=== PATIENT | female | born 1940 | race Caucasian/White ===

== ENCOUNTER 2016-12-23 04:46 | Observation (INO) ==
[2016-12-23] MEDS ORDERED: *HR* Morphine 2 MG/ML SYRINGE IVP ONE ×2 (05:19→06:27)
[2016-12-23] MEDS ORDERED: Ondansetron 4 MG/2 ML VIAL IVP PRN ×3 (05:20→14:37)
[2016-12-23] MEDS ORDERED: 0.9 % Sodium Chloride 1,000 ML IVC ONE (05:28)
--- NOTE | 2016-12-23 05:28 | Emergency Department Note ---
Disposition Clinical Impression: Right ureteral stone, Hydronephrosis of right kidney Disposition: Admitted As Inpatient Condition: Good Referrals: NONE,PCP [Primary Care Provider] - Forms: Work/School Release, ED Satisfaction Letter Time of Disposition: 06:21 Abdominal Pain HPI - General Chief Complaint: ED Abdominal Pain Stated Complaint: right flank pain Time Seen by Provider: 12/23/16 05:03 Source: patient, family Mode of arrival: ambulatory Limitations: no limitations Nursing Notes Reviewed: Yes Vital Signs Reviewed: Yes - History of Present Illness HPI Narrative: 76-year-old female recently diagnosed hypertension presents with right flank pain. This is been ongoing for the past week worse today. She is on able to find a position of ease and reports nausea without any vomiting. Describes the pain as sharp very painful radiating to the anterior abdomen. Denies any prior history of this and the past. No history of kidney stones. Denies any fever, recent illness, chest pain, shortness of breath. She reports constipation that is not new. Denies any dysuria but did notice hematuria a week ago. History of cholecystectomy. Patients afebrile and hypertensive. She has a prescription for lisinopril but reports not taking the medication the past few days. She does not have a primary care physician. Bedside ultrasound was performed in shows some mild to moderate right hydronephrosis. She is hypertensive likely from noncompliance but also from pain. Will get urinalysis, basic labs in the CT of the abdomen and pelvis to evaluate possible kidney stone. Will also give IV fluids, Zofran and morphine for symptoms. Patient is in agreement with this plan. Pt Subjective Complaint: flank pain Onset (ago): week(s) Pain Scale: 10 - Related Data Home Medications Medication Instructions Recorded Confirmed Claritin 07/22/16 Sudafed PE 07/22/16 Previous Rx's Medication Instructions Recorded Fluticasone Propionate Nasal 120 spray NS DAILY #1 bottle 07/22/16 [Flonase] Lisinopril [Zestril] 20 mg PO DAILY #15 tablet 07/22/16 Allergies Allergy/AdvReac Type Severity Reaction Status Date / Time No Known Allergies Allergy Verified 02/08/16 13:51 All systems ED: reviewed and negative except as stated. Review of Systems: As Per HPI Constitutional: Denies: fever, chills Cardiovascular: Denies: chest pain Respiratory: Denies: cough, dyspnea Gastrointestinal: Reports: abdominal pain, nausea, constipation. Denies: vomiting, diarrhea, melena, hematochezia Genitourinary: Reports: hematuria. Denies: urgency, dysuria, frequency Musculoskeletal: Reports: back pain (Right flank). Denies: neck pain Integumentary: Denies: rash, abrasion Neurological: Denies: headache Abdominal Pain PMH - Past Medical History Medical history: Reports: hypertension Female Surgical History: Reports: cholecystectomy Psychiatric history: Reports: no psych history - Social History Smoking status: Never smoker Alcohol use: Reports: none Drug use: Reports: none Physical Exam - General Limitations: no limitations General appearance: alert, in no apparent distress, other (Unable to find comfortable position) - Head Head exam: atraumatic, normocephalic, normal inspection - Eye Eye exam: Present: normal appearance, PERRL, EOMI. Absent: scleral icterus - ENT ENT exam: normal exam, normal oropharynx, mucous membranes moist - Neck Neck exam: Present: normal inspection, full ROM, trachea midline. Absent: tenderness - Chest Chest inspection: Present: normal inspection, symmetric chest wall rise. Absent : tenderness - Respiratory Respiratory exam: Present: normal lung sounds bilaterally. Absent: respiratory distress, wheezes - Cardiovascular Cardiovascular exam: Present: regular rate, normal rhythm, normal heart sounds - Abdominal Exam Abdominal exam: Present: soft, Non-Tender, hypoactive bowel sounds. Absent: tenderness, distention, guarding, rebound, rigidity, obturator sign, Rovsing's sign, tenderness at McBurney's Point - Extremities Exam Extremities exam: Present: normal inspection, full ROM, normal capillary refill. Absent: tenderness, pedal edema, calf tenderness - Back Exam Back exam: Present: normal inspection, full ROM, CVA tenderness (R). Absent: tenderness, CVA tenderness (L), vertebral tenderness, rashes - Neurological Exam Neurological exam: Present: alert, oriented X3 - Skin Skin exam: Present: warm, dry, intact, normal color Course - Reevaluation(s) Reevaluation #1: Review of her CT abdomen pelvis reveals a large ureteral stone up to 10 mm. Will await the final radiology report. Patient will likely need admission and neurology auscultation. Pain has subsided with morphine. Awaiting urinalysis. Creatinine function is surprisingly normal given the amount of hydronephrosis on her right kidney. Time: 06:05 Reevaluation #2: Pain mildly improved with morphine. Requests for additional medication. Additional 4 milligrams of morphine ordered. Urinalysis is is contaminated and showing hematuria, no obvious infection. Patient is awaiting admission to Urology service. Impression is ureteral stone with right hydronephrosis. Time: 06:29 - Consultations Consultation #1: Spoke to urologist Dr. Rhodes, due to the size it will likely need stenting. States that if the pain is intractable she may need admission. Her creatinine function is normal and awaiting a urinalysis at this time to evaluate for infection. I strongly suggested that she will likely need admission for symptom control and further intervention vs. outpatient follow up and treatment later today in the office as suggested. Dr. Rhodes is agreeable to admitting the patient to his service. Time: 06:19 Vital Signs Temperature 97.7 F 12/23/16 04:47 Pulse Rate 77 12/23/16 04:47 Respiratory Rate 16 12/23/16 04:47 Blood Pressure 208/102 12/23/16 04:47 O2 Sat by Pulse Oximetry 96 12/23/16 04:47 Temperature 97.7 F 12/23/16 04:47 Pulse Rate 77 12/23/16 04:47 Respiratory Rate 16 12/23/16 04:47 Blood Pressure 208/102 12/23/16 04:47 O2 Sat by Pulse Oximetry 94 12/23/16 05:44 Oxygen Delivery Oxygen Delivery Room Air Abdominal Pain - Medical Records Medical records reviewed: Yes I reviewed the patient's medical records. - Lab Data Lab results reviewed: Yes I reviewed the patient's lab results. Result diagrams: 12/23/16 05:17 12/23/16 05:17 Lab Results 12/23/16 12/23/16 12/23/16 Range/Units 05:17 05:17 06:20 WBC 8.0 (4.3-11.1) K/mcL RBC 4.89 (3.82-4.97) M/mcL Hgb 15.3 (11.5-15.4) g/dL Hct 45.6 H (35.3-44.9) % MCV 93.3 (83.0-100.0) fL MCH 31.3 (28.0-33.3) pg MCHC 33.6 (31.6-35.5) g/dL RDW 13.4 (11.5-14.5) % Plt Count 318 (140-400) K/mcL MPV 9.8 (9.4-12.4) fL Immature Gran % 1.0 (0-4) % Seg Neutrophils % 62.3 % Lymphocytes % 25.2 % Monocytes % 8.8 % Eosinophils % 2.2 % Basophils % 0.5 % Neutrophils # 5.0 (1.6-8.9) K/mcL Lymphocytes # 2.0 (0.6-4.6) K/mcL Monocytes # 0.7 (0.0-1.3) K/mcL Eosinophils # 0.2 (0.0-0.6) K/mcL Basophils # 0.0 (0.0-0.2) K/mcL Sodium 140 (136-145) mEq/L Potassium 3.9 (3.5-4.5) mEq/L Chloride 105 (98-109) mEq/L Carbon Dioxide 26 (19-29) mEq/L BUN 12 (7-20) mg/dL Creatinine 0.88 (0.57-1.11) mg/dL Est GFR ( Amer) > 60 (> 60) Est GFR (Non-Af Amer) > 60 (> 60) BUN/Creatinine Ratio 14 (6-26) Glucose 113 H (70-99) mg/dL Calculated Osmolality 291 (280-300) Calcium 9.6 (8.6-10.8) mg/dL Urine Color Yellow (Yellow) Urine Clarity Clear (Clear) Urine pH 6.5 (5.0-8.0) pH Units Ur Specific [place] 1.015 (1.010-1.025) Urine Protein 30 H (Neg-Trace) mg/dL Urine Glucose (UA) Normal (Normal) mg/dL Urine Ketones Negative (Negative) mg/dL Urine Blood Moderate H (Negative) Urine Nitrite Negative (Negative) Urine Bilirubin Negative (Negative) Urine Urobilinogen Normal (Normal) mg/dL Ur Leukocyte Esterase Trace H (Negative) Urine Microscopic RBC 15-30 H (0-3) per hpf Urine Microscopic WBC 5-15 H (0-3) per hpf Ur Squamous Epith Cells Many H (None-Few) per lpf Urine Bacteria None Seen (None-Few) per hpf Hyaline Casts None Seen (None-Few) per lpf Ur Culture Indicated? YES A (NO) - Radiology Data Radiology results reviewed: Yes I reviewed the patient's radiology results. Abdomen/Pelvis CT 12/23/16 05:19 IMPRESSION: Moderate to severe right-sided hydroureteronephrosis relating to a 15 mm sized stone in the proximal right ureter. Bilateral intrarenal nonobstructing calculi are present. Colonic diverticulosis is noted. D/ / Robert Ribeiro MD / Robert Ribeiro MD Interpreting Provider: Robert Ribeiro MD - EKG Data EKG attestation: Yes I reviewed and interpreted this EKG. EKG results narrative: EKG will performed 0459 sinus rhythm 80 bpm left atrial enlargement seen on lead V1, Q waves in inferior lead, no ST elevations or depression, intervals are within normal limits. No old EKG is available for comparison. This is a abnormal EKG. Patient denies any chest pain at this time. No STEMI pattern.
--- NOTE | 2016-12-23 05:31 | Emergency Department Note ---
START Narrative - START START: I examined this patient and my medical decision-making was reviewed with the Resident Physician. I agree with the documented findings, disposition and treatment plan as described except to the extent set forth below. Patient presents with right flank pain. We will need to evaluate for possible kidney stone. Bedside quick ultrasound showed possible hydronephrosis on the right kidney. We will do a CT scan as well as lab work and a urinalysis.
[2016-12-23 05:32] LABS: Basophils % 0.5 %; Eosinophils # 0.2 K/mcL (0.0-0.6); Eosinophils % 2.2 %; Hematocrit 45.6 % (35.3-44.9); Hemoglobin 15.3 g/dL (11.5-15.4); Lymphocytes % 25.2 %; Mean Corpuscular HGB Conc 33.6 g/dL (31.6-35.5); Mean Corpuscular Hemoglobin 31.3 pg (28.0-33.3); Mean Corpuscular Volume 93.3 fL (83.0-100.0); Mean Platelet Volume 9.8 fL (9.4-12.4); Monocytes # 0.7 K/mcL (0.0-1.3); Monocytes % 8.8 %; Platelet Count 318 K/mcL (140-400); Red Blood Count 4.89 M/mcL (3.82-4.97); Red Cell Distribution Width 13.4 % (11.5-14.5); Segmented Neutrophils % 62.3 %
[2016-12-23 05:47] LABS: BUN/Creatinine Ratio 14 (6-26); Blood Urea Nitrogen 12 mg/dL (7-20); Calcium 9.6 mg/dL (8.6-10.8); Carbon Dioxide 26 mEq/L (19-29); Chloride 105 mEq/L (98-109); Glucose 113 mg/dL (70-99); Osmolality,Calculated 291 (280-300); Potassium 3.9 mEq/L (3.5-4.5); Sodium 140 mEq/L (136-145); eGFR For African Americans > 60 (> 60); eGFR For Non-African Americans > 60 (> 60)
[2016-12-23 06:30] LABS: Bilirubin,Urine Negative (Negative); Blood,Urine Moderate (Negative); Clarity,Urine Clear (Clear); Color,Urine Yellow (Yellow); Glucose,Urine (UA) Normal (Normal); Ketones,Urine Negative (Negative); Leukocyte Esterase,Urine Trace (Negative); Nitrite,Urine Negative (Negative); PH,Urine 6.5 pH Units (5.0-8.0); Protein,Urine 30 mg/dL (Neg-Trace); Specific Gravity,Urine 1.015 (1.010-1.025); Urobilinogen,Urine Normal (Normal)
[2016-12-23 06:32] LABS: Bacteria,Urine None Seen per hpf (None-Few); Hyaline Casts,Urine None Seen per lpf (None-Few); RBC,Urine 15-30 per hpf (0-3); Squamous Epithelial Cell,Urine Many per lpf (None-Few)
[2016-12-23] MEDS ORDERED: Naloxone 0.4 MG/ML INJ IVP PRN ×2 (07:49→14:37)
[2016-12-23] MEDS ORDERED: *HR* HYDROmorphone (PF) 1 MG/ML SYRINGE IVP PRN ×2 (07:49→14:37)
--- NOTE | 2016-12-23 07:49 | Urology History & Physical ---
Date of Encounter: 12/23/16 Time of Encounter: 07:46 Assessment and Plan (1) Right ureteral stone Current Visit: Yes Status: Acute 76-year-old woman with a history of a right proximal ureteral stone. I reviewed the films. Her pain is not adequately controlled. Given the size of the stone, I think it be best to place a stent. I would then proceed with ureteroscopy and laser lithotripsy at a later date once the ureter has been passively dilated with the stent. I informed her of the risks of the procedure. I will plan on performing a cystoscopy and right ureteral stent placement. The risks include but are not limited to bleeding, infection, injury to structures, need for further procedures, stent irritation, need for nephrostomy tube, and the risk of anesthesia. She is willing to proceed. History of Present Illness Chief complaint: Right flank pain HPI: Ms. Multani is a 76 year old female who presents with a 2 day history of right flank pain. The pain became more severe last night. It is located in the right flank and radiates to the groin. The pain was quite severe. It was sharp. She denies any history of a similar pain. She came to the emergency department and a CT scan was performed which showed a 15 mm right proximal ureteral stone. She has been admitted for pain control. Past Med Surg Social Fam HX - Past Medical History Medical history: hypertension Psychiatric history: no psych history - Past Surgical History Surgical History: non-contributory, cholecystectomy - Social History Smoking Status: Never smoker Smokeless Tobacco Status: No Alcohol use: none Drug use: none - Family History Mother Hx Family Respiratory Disorders: Yes (COPD) Hx Family Neurologic Disorders: Yes (TIA) Father Hx Family Cardiac Disorders: Yes (SC,) Medications and Allergies Claritin 07/22/16 [History] Fluticasone Propionate Nasal [Flonase] 120 spray NS DAILY #1 bottle 07/22/16 [Rx ] Lisinopril [Zestril] 20 mg PO DAILY #15 tablet 07/22/16 [Rx] Sudafed PE 07/22/16 [History] Allergies No Known Allergies Allergy (Verified 02/08/16 13:51) Review of Systems - Constitutional no chills, no fever(s) - EENT Nose, mouth and throat: no dizziness - Cardiovascular no chest pain - Respiratory no dyspnea - Gastrointestinal no nausea, no vomiting - Genitourinary Genitourinary: flank pain, no hematuria - Musculoskeletal no back pain - Integumentary no erythema, no rash - Neurological no weakness - Psychiatric no suicidal ideation - Hematologic/Lymphatic no easy bleeding - Allergic/Immunologic no wheezing Exam Initial Vital Signs Temp Pulse Resp BP Pulse Ox 97.7 F 77 16 208/102 96 12/23/16 04:47 12/23/16 04:47 12/23/16 04:47 12/23/16 04:47 12/23/16 04:47 - General physical appearance Present: well developed, well nourished, moderate pain - Eyes Absent: icteric - ENT Present: normal nares - Neck Present: trachea midline - Respiratory Present: normal respiratory effort - Cardiovascular Cardiovascular exam IM: RRR - Abdomen Abdomen: Present: soft Urology Results - Labs 12/23/16 05:17 12/23/16 05:17 Abnormal lab results Hct 45.6 % (35.3-44.9) H 12/23/16 05:17 Glucose 113 mg/dL (70-99) H 12/23/16 05:17 Urine Protein 30 mg/dL (Neg-Trace) H 12/23/16 06:20 Urine Blood Moderate (Negative) H 12/23/16 06:20 Ur Leukocyte Esterase Trace (Negative) H 12/23/16 06:20 Urine Microscopic RBC 15-30 per hpf (0-3) H 12/23/16 06:20 Urine Microscopic WBC 5-15 per hpf (0-3) H 12/23/16 06:20 Ur Squamous Epith Cells Many per lpf (None-Few) H 12/23/16 06:20 Ur Culture Indicated? YES (NO) A 12/23/16 06:20 All other labs normal. - Imaging CT scan - abdomen: report reviewed, image reviewed CT scan - pelvis: report reviewed, image reviewed
[2016-12-23] MEDS ORDERED: 0.9 % Sodium Chloride 1,000 ML IVC SCH ×2 (08:00→14:37)
[2016-12-23] MEDS ORDERED: ceFAZolin 2,000 MG in D5% in Water (Mini-Bag+) 100 ML IVPB ONE (08:39)
[2016-12-23] MEDS ORDERED: Lisinopril 20 MG TABLET PO SCH (09:00)
[2016-12-23] MEDS ORDERED: Fluticasone Propionate Nasal 50 MCG/SPRAY BOTTLE NS SCH (09:00)
--- NOTE | 2016-12-23 09:02 | Anesthesia Evaluation PreOp ---
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 Any Significant HX Other Medical History: Denies Any Significant HX Anesthesia History: No Prior Anesthetic Complications, Past Anesthesia (GB) : No Alcohol Use: none Drug use: none Medications and Allergies Lisinopril [Zestril] 20 mg PO DAILY #15 tablet 07/22/16 [Rx] Loratadine [Allergy Relief] 10 mg PO DAILY 07/22/16 [History] Fluticasone Propionate Nasal [Flonase] 2 spray NS DAILY 12/23/16 [History] Allergies No Known Allergies Allergy (Verified 02/08/16 13:51) - Meds/Allergy Pre-op Review Medications Reviewed: Yes Allergies Reviewed: Yes Beta Blockers on Current Med List: No Anesthesia Results - Labs 12/23/16 05:17 12/23/16 05:17 Anesthesia Exam O2 Sat Height 1.6 m Weight 68.039 kg O2 Sat by Pulse Oximetry 95 O2 Sat by Pulse Oximetry 94 O2 Sat by Pulse Oximetry 96 Vital Signs Temp Pulse Resp BP Pulse Ox 97.7 F 77 16 208/102 96 12/23/16 04:47 12/23/16 04:47 12/23/16 04:47 12/23/16 04:47 12/23/16 04:47 Vital Signs/O2 Sat, Most Current Temp Pulse Resp BP Pulse Ox 98.2 F 74 16 177/82 95 12/23/16 07:25 12/23/16 07:25 12/23/16 07:25 12/23/16 07:25 12/23/16 07:25 Height: 5'3'' Weight: 150# NPO (# of Hours): > 8 hrs Pain Scale: 0 Pain Scale Used: Numeric (1 - 10) - HEENT Pupil (Motor): Pupils equal, EOMI Mallampati: II Teeth: Normal Oral Opening: Greater than 3 - STORE ADMINISTRATIVE ASSISTANT LOC: Oriented STORE ADMINISTRATIVE ASSISTANT Motor: Normal RUE, Normal LUE, Normal RLE, Normal LLE, Normal Face STORE ADMINISTRATIVE ASSISTANT Sensory: Normal: RUE, LUE, RLE, LLE, Face - Cardiac Rhythm: Regular Murmur: None JVD: No Carotid Bruit: No - Pulmonary Breath Sounds: bilateral Clear Respiratory Effort: Symmetrical Anesthesia Assess/Plan ASA Score: 2 Modified Pepperell Scale for Level of Consciousness: Cooperative, oriented, and tranquil Anesthetic Plan: General Autologous Blood: Yes Monitoring Plan: Standard Monitors Recovery Plan: PACU
[2016-12-23] MEDS ORDERED: *HR* Propofol 200 MG/20 ML VIAL IVP ONE (09:15)
[2016-12-23] MEDS ORDERED: Ondansetron 4 MG/2 ML VIAL ONE (09:15)
[2016-12-23] MEDS ORDERED: *HR* FentaNYL (PF) 100 MCG/2 ML VIAL ONE (09:15)
[2016-12-23] MEDS ORDERED: Dexamethasone 4 MG/ML VIAL ONE (09:15)
[2016-12-23] MEDS ORDERED: Lidocaine -MPF 2% 2 ML VIAL ONE (09:16)
--- NOTE | 2016-12-23 09:59 | Operative Note ---
Date of procedure: 12/23/16 Pre-op diagnosis: Right ureteral stone Post-op diagnosis: same Procedure: Cystoscopy, right ureteral stent placement. Implants: 6 [place] x 26cm JJ stent. Complications: none Anesthesia: JAVIER Surgeon: Lucho Rhodes Estimated blood loss (cc): 0 Specimen: none Condition: stable Disposition: PACU Procedure in Detail: Indications: Jennifer is a 76-year-old woman who has a history of nephrolithiasis. She had a CT which showed a right proximal ureteral stone. She elected to undergo a cystoscopy and right ureteral stent placement. She was aware of the risks of the procedure including but not limited to bleeding, infection, injury to other structures, need for further procedures, stent irritation, need for nephrostomy tube, need for open repair, risks otherwise unforeseen, and the risk of anesthesia. She is willing to proceed. Procedure in Detail: After informed consent was obtained the patient was brought back to the operating room and placed in supine position. A time out was performed. General anesthesia was administered and a LMA was placed. She was then placed in the lithotomy position. She was prepped and draped in the usual sterile fashion. Cystoscopy was performed. The anterior urethra was normal. There was no evidence of bladder tumors. The ureteral orifices were in the normal orthotopic position. There was no duplication of the ureteral orifices. The Zip wire was placed in the right ureteral orifice. It was passed into the kidney. A 6 [place] by 24cm JJ stent was then placed. The dangle strings were removed. The patient was then awakened from general anesthesia and brought to recovery room in good condition. All sponge, needle, and instrument counts were correct.
--- NOTE | 2016-12-23 10:05 | Discharge Summary ---
Date of Encounter: 12/23/16 Time of Encounter: 10:03 - Discharge Diagnosis (1) Right ureteral stone Priority: Primary Status: Acute - Discharge Medications Prescriptions: HYDROcodone/Acet 5/325 mg [[place] 5-325 mg] 1 tab PO Q4H PRN #25 tab PRN Reason: Pain Home Medications: Lisinopril [Zestril] 20 mg PO DAILY #15 tablet 07/22/16 [Rx] Loratadine [Allergy Relief] 10 mg PO DAILY 07/22/16 [History] Fluticasone Propionate Nasal [Flonase] 2 spray NS DAILY 12/23/16 [History] HYDROcodone/Acet 5/325 mg [[place] 5-325 mg] 1 tab PO Q4H PRN #25 tab 12/23/16 [Rx ] Allergies/Adverse Reactions: Allergies No Known Allergies Allergy (Verified 02/08/16 13:51) Date of admission: 12/23/16 06:37 Primary care physician: PCP NONE Discharging clinician: Lucho Rhodes Anticipated date of discharge: 12/23/16 - Patient Status Disposition: Home, Self-Care Condition: Good Functional capacity at discharge: independent ambulation Overall status at discharge: patient is progressing back to baseline - Discharge Instructions Additional Instructions: 1. Dr. Rhodes will arrange for a surgery date to treat her stone. 2. She should expect to feel flank pain with voiding. 3. The patient should call for any fevers, chills, nausea, emesis, or uncontrolled pain. 4. Please provide a work excuse if necessary for up to 1 week off. - Diet and Activity Activity: increase activity as tolerated Diet: advance to your usual diet - Hospital Course Hospital course: Ms. Multani is a 76 year old female who is admitted with right flank pain. She had a 15 mm right proximal ureteral stone. On December 23, 2016 she underwent a cystoscopy and right ureteral stent placement. She tolerated the procedure well. She was discharged home later that day. - Time Spent with Patient Total time spent providing and/or coordinating discharge services: Less than 30 minutes Exam Initial Vital Signs Temp Pulse Resp BP Pulse Ox 97.7 F 77 16 208/102 96 12/23/16 04:47 12/23/16 04:47 12/23/16 04:47 12/23/16 04:47 12/23/16 04:47 - General physical appearance Present: well developed, well nourished, no distress - Eyes Absent: icteric - ENT Present: normal nares - Respiratory Present: normal respiratory effort - Cardiovascular Cardiovascular exam IM: RRR - Abdomen Abdomen: Present: soft
--- NOTE | 2016-12-23 10:31 | Anesthesia Evaluation Post Op ---
Date of Encounter: 12/23/16 Time of Encounter: 10:31 - Vital Signs Vital Signs: Vital Signs/O2 Sat, Most Current Temp Pulse Resp BP Pulse Ox 99 F 87 13 155/85 98 12/23/16 10:04 12/23/16 10:24 12/23/16 10:24 12/23/16 10:24 12/23/16 10:24 - Lungs Lungs: Clear Ascult./Percussion - Airway Airway: Non-obstructed - Cardiovascular Regular Rate - Mental Status Mental Status: Alert & Oriented, Answers Appropriately - Pain Pain Scale: 0 Pain Scale used: Numeric (1 - 10) - Nausea Vomiting Nausea Vomiting: Not Present - Hydration Hydration: NPO, Has not voided - Discharge PostOp Status: Transfer Patient to floor
[2016-12-23] MEDS: Loratadine 10 MG TABLET PO SCH ×2 (11:25→12:09)
[2016-12-23] MEDS ORDERED: *HR* HYDROcodone/Acet 5/325 mg TABLET PO PRN (14:37)
[2016-12-23 14:52] VITALS: BP 151/75
--- NOTE | 2016-12-23 15:32 | Electrocardiograph Report ---
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
[2016-12-24] MEDS ORDERED: Lisinopril 20 MG TABLET PO SCH (09:00)
[2016-12-24] MEDS ORDERED: Loratadine 10 MG TABLET PO SCH (09:00)
[2016-12-24] MEDS ORDERED: Fluticasone Propionate Nasal 50 MCG/SPRAY BOTTLE NS SCH (09:00)
== END 2016-12-23 16:41 | disposition home or self-care (01) ==
LOC: EMEROO 04:46 → 3ANU 04:46
PROVIDERS: ADMIT Urology; ATTEND Urology

== ENCOUNTER 2021-02-24 18:00 | Inpatient (IN) ==
[2021-02-24] MEDS ORDERED: 0.9 % Sodium Chloride 1,000 ML IVC ONE (18:24)
[2021-02-24 18:39] LABS: Basophils % 0.1 %; Hematocrit 40.4 % (35.3-44.9); Hemoglobin 13.8 g/dL (11.5-15.4); Immature Granulocytes % 0.9 % (0-4); Lymphocytes # 0.7 K/mcL (0.6-4.6); Mean Corpuscular HGB Conc 34.2 g/dL (31.6-35.5); Mean Corpuscular Hemoglobin 31.8 pg (28.0-33.3); Mean Corpuscular Volume 93.1 fL (83.0-100.0); Monocytes # 0.4 K/mcL (0.0-1.3); Monocytes % 2.5 %; Neutrophils # 15.8 K/mcL (1.6-8.9); Platelet Count 233 K/mcL (140-400); Red Blood Count 4.34 M/mcL (3.82-4.97); Red Cell Distribution Width 13.4 % (11.5-14.5); Segmented Neutrophils % 92.5 %; White Blood Count 17.1 K/mcL (4.3-11.1)
[2021-02-24 19:02] LABS: Bacteria,Urine Few per hpf (None-Few); Bilirubin,Urine Negative (Negative); Blood,Urine Large (Negative); Clarity,Urine Turbid (Clear); Color,Urine Yellow (Yellow); Glucose,Urine (UA) 70 mg/dL (Normal); Ketones,Urine Negative (Negative); Leukocyte Esterase,Urine Negative (Negative); Mucus,Urine Few per lpf (None-Few); Nitrite,Urine Negative (Negative); Protein,Urine >=300 mg/dL (Neg-Trace); RBC,Urine TNTC per hpf (0-3); Specific Gravity,Urine 1.026 (1.010-1.025); Squamous Epithelial Cell,Urine Few per hpf (None-Few); WBC,Urine 0-3 per hpf (0-3)
[2021-02-24 19:09] LABS: Troponin I 0.08 ng/mL (< 0.04)
[2021-02-24 19:10] LABS: Alanine Aminotransferase 29 Units/L (7-52); Albumin 3.8 g/dL (3.5-5.7); Albumin/Globulin Ratio 1.2 (1.1-2.2); Alkaline Phosphatase 74 Units/L (34-104); Aspartate Amino Transferase 39 Units/L (13-39); BUN/Creatinine Ratio 14 (6-26); Bilirubin,Total 1.2 mg/dL (0.3-1.0); Blood Urea Nitrogen 15 mg/dL (8-23); Carbon Dioxide 23 mEq/L (23-29); Chloride 93 mEq/L (98-107); Globulin 3.3 g/dL (2.4-3.5); Glucose 201 mg/dL (70-105); Magnesium 1.6 mg/dL (1.6-2.6); Osmolality,Calculated 269 (280-300); Phosphorous < 1.0 mg/dL (2.7-4.5); Potassium 3.8 mEq/L (3.5-5.1); Sodium 126 mEq/L (136-145); Total Protein 7.1 g/dL (6.4-8.9); eGFR For African Americans > 60 (> 60); eGFR For Non-African Americans 51 (> 60)
[2021-02-24 19:31] LABS: Influenza A PCR Negative (Negative); Influenza B PCR Negative (Negative); Resp. Syncytial Virus PCR Negative (Negative)
[2021-02-24 19:40] LABS: SARS-CoV-2 by PCR (In House) Negative (Negative)
[2021-02-24] MEDS ORDERED: Aspirin 81 MG TAB.CHEW PO ONE (19:42)
[2021-02-24] MEDS ORDERED: Isovue-370 500 ML BOTTLE IVP ONE (19:42)
[2021-02-24] MEDS ORDERED: cefTRIAXone 1,000 MG in 0.9 % Sodium Chloride Mini Bag 100 ML IVPB ONE (21:23)
[2021-02-24] MEDS ORDERED: Azithromycin 500 MG in 0.9 % Sodium Chloride 250 ML IVPB ONE (21:23)
[2021-02-24] MEDS ORDERED: Naloxone 0.4 MG/ML INJ IVP PRN (22:16)
[2021-02-24] MEDS ORDERED: Acetaminophen 325 MG TABLET PO PRN (22:16)
[2021-02-24] MEDS ORDERED: Ondansetron 4 MG/2 ML VIAL IVP PRN (22:16)
[2021-02-24] MEDS ORDERED: Potassium Phosphate 44 MEQ in 0.9 % Sodium Chloride 250 ML IVPB ONE (23:00)
[2021-02-24 23:30] LABS: BUN/Creatinine Ratio 16 (6-26); Blood Urea Nitrogen 15 mg/dL (8-23); Calcium 8.2 mg/dL (8.6-10.3); Carbon Dioxide 21 mEq/L (23-29); Chloride 98 mEq/L (98-107); Glucose 176 mg/dL (70-105); Osmolality,Calculated 273 (280-300); Phosphorous 2.6 mg/dL (2.7-4.5); Potassium 3.7 mEq/L (3.5-5.1); Sodium 129 mEq/L (136-145); eGFR For African Americans > 60 (> 60); eGFR For Non-African Americans 56 (> 60)
[2021-02-25 01:12] LABS: Hematocrit 37.2 % (35.3-44.9); Hemoglobin 12.4 g/dL (11.5-15.4); Mean Corpuscular HGB Conc 33.3 g/dL (31.6-35.5); Mean Corpuscular Hemoglobin 31.8 pg (28.0-33.3); Mean Corpuscular Volume 95.4 fL (83.0-100.0); Mean Platelet Volume 9.8 fL (9.4-12.4); Platelet Count 196 K/mcL (140-400); White Blood Count 13.9 K/mcL (4.3-11.1)
[2021-02-25 01:36] LABS: Lymphocytes # 1.4 K/mcL (0.6-4.6); Neutrophils # 12.5 K/mcL (1.6-8.9); Platelet Estimate Normal (Normal); Reactive Lymphocytes Present (Not Present)
[2021-02-25 01:40] LABS: BUN/Creatinine Ratio 18 (6-26); Blood Urea Nitrogen 17 mg/dL (8-23); Calcium 8.4 mg/dL (8.6-10.3); Carbon Dioxide 21 mEq/L (23-29); Chloride 99 mEq/L (98-107); Glucose 148 mg/dL (70-105); Magnesium 1.7 mg/dL (1.6-2.6); Osmolality,Calculated 274 (280-300); Phosphorous 3.6 mg/dL (2.7-4.5); Potassium 3.8 mEq/L (3.5-5.1); Sodium 130 mEq/L (136-145); eGFR For African Americans > 60 (> 60); eGFR For Non-African Americans 56 (> 60)
[2021-02-25 01:41] LABS: Amylase 15 Units/L (29-103); Lipase 3 Units/L (11-82)
[2021-02-25] MEDS: *HR* Enoxaparin 40 MG/0.4 ML SYRINGE SQ SCH (06:10)
[2021-02-25] MEDS ORDERED: 0.9 % Sodium Chloride 1,000 ML IVC SCH (09:30)
[2021-02-25] MEDS: Piperacillin/Tazobactam 3.375 GM in 0.9 % Sodium Chloride Mini Bag 100 ML IVPB SCH ×3 (10:16→23:12)
[2021-02-25 10:31] LABS: BUN/Creatinine Ratio 16 (6-26); Blood Urea Nitrogen 13 mg/dL (8-23); Calcium 8.8 mg/dL (8.6-10.3); Carbon Dioxide 25 mEq/L (23-29); Chloride 98 mEq/L (98-107); Glucose 157 mg/dL (70-105); Magnesium 1.7 mg/dL (1.6-2.6); Osmolality,Calculated 275 (280-300); Potassium 3.7 mEq/L (3.5-5.1); Sodium 131 mEq/L (136-145); Troponin I 0.07 ng/mL (< 0.04); eGFR For African Americans > 60 (> 60); eGFR For Non-African Americans > 60 (> 60)
[2021-02-25] MEDS ORDERED: Vancomycin 1,250 MG/262.5 ML IV.SOLN IVPB SCH (11:00)
[2021-02-25 11:39] LABS: Adenovirus Not Detected (Not Detect); Bordetella Pertussis Not Detected (Not Detect); Chlamydophila pneumoniae Not Detected (Not Detect); Coronavirus 229E Not Detected (Not Detect); Coronavirus HKU1 Not Detected (Not Detect); Coronavirus NL63 Not Detected (Not Detect); Coronavirus OC43 Not Detected (Not Detect); Human Metapneumovirus Not Detected (Not Detect); Human Rhinovirus/Enterovirus Not Detected (Not Detect); Influenza A Subtype 2009 H1 Not Detected (Not Detect); Influenza B Not Detected (Not Detect); Mycoplasma pneumoniae Not Detected (Not Detect); Parainfluenza Virus 1 Not Detected (Not Detect); Parainfluenza Virus 2 Not Detected (Not Detect); Parainfluenza Virus 3 Not Detected (Not Detect); Parainfluenza Virus 4 Not Detected (Not Detect); Respiratory Syncytial Virus Not Detected (Not Detect); SARS-CoV-2 Not Detected (Not Detect)
[2021-02-25] MEDS: 0.9 % Sodium Chloride 1,000 ML IVC SCH (13:15)
[2021-02-25 14:32] LABS: Estimated Average Glucose 126 mg/dl
[2021-02-25] MEDS ORDERED: levoFLOXacin 750 MG/150 ML 750 MG/150 ML BAG IVPB ONE (15:52)
[2021-02-25] MEDS: Levalbuterol Neb 1.25 MG/3 ML IH SCH ×3 (15:54→20:31)
[2021-02-25 19:59] LABS: BUN/Creatinine Ratio 15 (6-26); Blood Urea Nitrogen 12 mg/dL (8-23); Calcium 8.4 mg/dL (8.6-10.3); Carbon Dioxide 23 mEq/L (23-29); Chloride 99 mEq/L (98-107); Glucose 156 mg/dL (70-105); Osmolality,Calculated 273 (280-300); Potassium 3.4 mEq/L (3.5-5.1); Sodium 130 mEq/L (136-145); eGFR For African Americans > 60 (> 60); eGFR For Non-African Americans > 60 (> 60)
[2021-02-25 20:30] LABS: Troponin I 0.06 ng/mL (< 0.04)
[2021-02-25] MEDS ORDERED: Azithromycin 500 MG in 0.9 % Sodium Chloride 250 ML IVPB SCH (22:00)
[2021-02-25] MEDS ORDERED: cefTRIAXone 1,000 MG in Water for inj. (sterile) 10 ML IVP SCH (22:00)
[2021-02-26] MEDS: Levalbuterol Neb 1.25 MG/3 ML IH SCH ×4 (03:33→19:44)
[2021-02-26] MEDS: *HR* Enoxaparin 40 MG/0.4 ML SYRINGE SQ SCH (05:16)
[2021-02-26 07:04] LABS: Basophils % 0.3 %; Hematocrit 36.9 % (35.3-44.9); Hemoglobin 12.4 g/dL (11.5-15.4); Immature Granulocytes % 1.3 % (0-4); Lymphocytes # 0.7 K/mcL (0.6-4.6); Lymphocytes % 6.1 %; Mean Corpuscular HGB Conc 33.6 g/dL (31.6-35.5); Mean Corpuscular Hemoglobin 31.5 pg (28.0-33.3); Mean Corpuscular Volume 93.7 fL (83.0-100.0); Mean Platelet Volume 10.3 fL (9.4-12.4); Monocytes # 0.5 K/mcL (0.0-1.3); Neutrophils # 10.4 K/mcL (1.6-8.9); Platelet Count 212 K/mcL (140-400); Red Blood Count 3.94 M/mcL (3.82-4.97); Red Cell Distribution Width 14.2 % (11.5-14.5); Segmented Neutrophils % 88.3 %; White Blood Count 11.7 K/mcL (4.3-11.1)
[2021-02-26 07:21] LABS: BUN/Creatinine Ratio 16 (6-26); Blood Urea Nitrogen 12 mg/dL (8-23); Calcium 8.5 mg/dL (8.6-10.3); Carbon Dioxide 23 mEq/L (23-29); Chloride 99 mEq/L (98-107); Glucose 102 mg/dL (70-105); Magnesium 1.8 mg/dL (1.6-2.6); Osmolality,Calculated 272 (280-300); Phosphorous 2.1 mg/dL (2.7-4.5); Potassium 3.5 mEq/L (3.5-5.1); Sodium 131 mEq/L (136-145); eGFR For African Americans > 60 (> 60); eGFR For Non-African Americans > 60 (> 60)
[2021-02-26] MEDS ORDERED: Azithromycin 500 MG in 0.9 % Sodium Chloride 250 ML IVPB SCH (11:00)
[2021-02-26] MEDS: lisinopriL 20 MG TABLET PO SCH (13:34)
[2021-02-26] MEDS: Azithromycin 500 MG in 0.9 % Sodium Chloride 250 ML IVPB SCH (13:34)
[2021-02-26] MEDS ORDERED: levoFLOXacin 750 MG/150 ML 750 MG/150 ML BAG IVPB SCH (16:00)
[2021-02-26] MEDS: 0.9 % Sodium Chloride 1,000 ML IVC SCH (18:18)
[2021-02-27 02:15] LABS: Basophils % 0.5 %; Eosinophils % 0.1 %; Hematocrit 34.9 % (35.3-44.9); Immature Granulocytes % 2.7 % (0-4); Lymphocytes % 10.1 %; Mean Corpuscular HGB Conc 34.4 g/dL (31.6-35.5); Mean Corpuscular Hemoglobin 32.5 pg (28.0-33.3); Mean Corpuscular Volume 94.6 fL (83.0-100.0); Mean Platelet Volume 9.9 fL (9.4-12.4); Monocytes % 5.9 %; Platelet Count 205 K/mcL (140-400); Red Blood Count 3.69 M/mcL (3.82-4.97); Red Cell Distribution Width 14.5 % (11.5-14.5); Segmented Neutrophils % 80.7 %; White Blood Count 9.6 K/mcL (4.3-11.1)
[2021-02-27 02:16] LABS: Basophils # 0.1 K/mcL (0.0-0.2); Monocytes # 0.6 K/mcL (0.0-1.3); Neutrophils # 7.8 K/mcL (1.6-8.9)
[2021-02-27 02:39] LABS: BUN/Creatinine Ratio 20 (6-26); Blood Urea Nitrogen 12 mg/dL (8-23); Calcium 8.3 mg/dL (8.6-10.3); Carbon Dioxide 23 mEq/L (23-29); Chloride 102 mEq/L (98-107); Glucose 107 mg/dL (70-105); Magnesium 1.8 mg/dL (1.6-2.6); Osmolality,Calculated 276 (280-300); Phosphorous 2.1 mg/dL (2.7-4.5); Potassium 3.4 mEq/L (3.5-5.1); Sodium 133 mEq/L (136-145); eGFR For African Americans > 60 (> 60); eGFR For Non-African Americans > 60 (> 60)
[2021-02-27] MEDS: Levalbuterol Neb 1.25 MG/3 ML IH SCH ×3 (03:26→15:44)
[2021-02-27] MEDS: *HR* Enoxaparin 40 MG/0.4 ML SYRINGE SQ SCH (05:05)
[2021-02-27] MEDS: lisinopriL 20 MG TABLET PO SCH (08:14)
[2021-02-27 12:30] VITALS: BP 145/83; PULSE 92; TEMP 97.9; O2SAT 94
[2021-02-27] MEDS: Azithromycin 500 MG in 0.9 % Sodium Chloride 250 ML IVPB SCH (14:07)
== END 2021-02-27 16:14 | disposition home or self-care (01) | DRG 871 ==
LOC: 3BNU 18:00 → EMEROOARM 18:00 → SUATTDRO 21:57 → 3BNU 22:32
PROVIDERS: ADMIT Family Medicine; ATTEND Internal Medicine